=== PATIENT | female | born 1980 | race Caucasian/White ===

== ENCOUNTER 2016-09-23 17:35 | Emergency (ER) | payer MEDICAID, OTHER ==
[~2016-09-23] VITALS: Ht 165.1 cm; Wt 104.5 kg
[~2016-09-23 17:35] MED LIST: ACET325T33 PO; ALBU8.5H3 INH; CIPR500T4 PO; FERR-55 PO; HYDR-3498 PO; HYDR-906 PO; METR500T PO; ONDA4TAB35 PO; TRAM50TA2 PO
[2016-09-23 17:37] VITALS: Ht 165.1 cm; Wt 104.5 kg
[2016-09-23 19:14] LABS: ALBUMIN 3.6 g/dl (3.3-4.9)
[2016-09-23 19:15] LABS: POTASSIUM 4.2 mmol/L (3.5-5.1)
[2016-09-23 19:17] LABS: ALBUMIN/GLOBULIN RATIO 1.05; CREATININE 0.55 mg/dl (0.44-1.00)
[2016-09-23 19:18] LABS: CALCIUM 9.4 mg/dl (8.4-10.2)
--- NOTE | 2016-09-23 19:42 | RADRPT ---
PROCEDURE: Obstetrical ultrasound greater than 14 weeks CLINICAL INDICATION: Vaginal bleeding TECHNIQUE: Real time sonographic imaging of the gravid uterus is performed transabdominally and mu ltiple static bishop scale and Doppler images are submitted for review as are measurements. The image s are reviewed on the PACS. COMPARISON: Pelvic ultrasound 06/27/2016 FINDINGS: There is a single living intrauterine gestation in cephalic to variable presentation. The he art beat is estimated at 136 bpm. The measurements are as follows: BPD:4.12 cm HC:15.20 cm AC:14.59 cm FL:3.12 cm Estimated gestational age is 19 weeks 1 day. The estimated date of delivery is 02/16/2017. The estimated weight is 302 grams. Placenta is anterior and grade 1. There is no evidence of placenta previa or abruption. anatomic survey is performed and shows no abnormality, the three-vessel cord and cord insertio n are unremarkable. The amniotic fluid is normal, the maximum vertical pocket estimated at 7.22 cm. RPTAT:HJJR IMPRESSION: 1. Single viable intrauterine gestation estimated at 90 weeks 1 day, appropriate interval growth com pared to the study of 06/27/2016 with the estimated date of delivery 02/16/2017. 2. Anterior grade 1 placenta without evidence of placenta previa or abruption. Physician Becky Date Time Electronically viewed and signed by Physician Becky on 09/23/2016 19:42 JR/
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
[2016-09-23 20:40] VITALS: BP 122/79; PULSE 86; RESP 16
== END 2016-09-23 20:42 | disposition home or self-care (01) ==
LOC: FTE 17:35
DX: O26.892 Other specified pregnancy related conditions, second trimester (principal); R10.2 Pelvic and perineal pain; O99.52 Diseases of the respiratory system complicating childbirth; Z3A.19 19 weeks gestation of pregnancy
CPT/HCPCS: 76801; 76817; 80053; 84702; 86900; 86901; Z7502

== ENCOUNTER 2016-11-20 09:25 | Outpatient (CLI) | payer MEDICAID ==
[~2016-11-20] VITALS: Ht 160 cm; Wt 108.6 kg
[2016-11-20 09:42] VITALS: BP 142/67; PULSE 94; RESP 19; Ht 160 cm; Wt 108.6 kg
--- NOTE | 2016-11-20 10:23 | RADRPT ---
PROCEDURE: Obstetrical ultrasound CLINICAL INDICATION: LEAKING FLUID/PTL TECHNIQUE: Multiple sonographic images of the pelvis were obtained. The images were reviewed on a PACS workstation. COMPARISON: Obstetrical ultrasound from 09/23/2016 FINDINGS: The cervix is closed with a length of 4.4 cm. There is a single viable intrauterine gestation. Cardiac activity is present with 141 beats per minute. There is a vertex presentation. The placenta is anterior. There is no evidence for an abruption or placenta previa. There is a normal amount of amniotic fluid with an DELFINO = 9.2 cm. Measurements were made in order to determine age. The results are as follows (cm): BPD =7.03 HC =25.91 AC =23.60 FL =4.65 Estimated gestational age by ultrasound of approximately 27 weeks, 3 days. The estimated date of delivery by ultrasound is 02/16/2017. Estimated gestational age by LMP of approximately 27 weeks, 5 days. The estimated date of delivery by LMP is 02/14/2017. EFW = 1030 grams (18th percentile) IMPRESSION: Single viable intrauterine gestation of approximately 27 weeks, 3 days . The estimated date of delivery is 02/16/2017 . Dating by ultrasound is within 2 days of dating by LMP. Normal DELFINO. Cephalic presentation. Estimated weight is in the 18th percentile. The cervix is closed and measures 4.4 cm in length. RPTAT: EE Physician Radha Date Time Electronically viewed and signed by Physician Radha on 11/20/2016 10:22 /
[2016-11-20 10:41] LABS: ADD UMIC YES; URINE BILIRUBIN (Dip) NEGATIVE (NEGATIVE); URINE BLOOD (Dip) TRACE (NEGATIVE); URINE COLOR LT. YELLOW (YELLOW); URINE GLUCOSE (Dip) NEGATIVE (NEGATIVE); URINE KETONES (Dip) NEGATIVE (NEGATIVE); URINE LEUKOCYTE ESTERASE (Dip) 2+ (NEGATIVE); URINE NITRITE (Dip) NEGATIVE (NEGATIVE); URINE TOTAL PROTEIN (Dip) TRACE (NEGATIVE); URINE UROBILINOGEN (Dip) 0.2 E.U./dL (0.1-1.0)
[2016-11-20 10:49] LABS: BACTERIA,URINE FEW; SQUAMOUS EPITHELIAL CELL,UR MANY; URINE RBCS NONE SEEN /HPF (0)
--- NOTE | 2016-11-20 11:43 | PN ---
Date/Time of Note Date/Time of Note DATE: 11/20/16 TIME: 11:31 OB Subjective Subjective Subjective Patient is a 36-year-old 5 para 4 at 27+ weeks of gestation She presents with complaint of positive contractions and positive leaking fluids Patient reports positive movement, no vaginal bleeding Her care has been with Dr. Mims OB Objective Objective Objective UA negative Rupture of membranes negative Cervical length 4.4 cm DELFINO 9.2 cm PROCEDURE: Obstetrical ultrasound CLINICAL INDICATION: LEAKING FLUID/PTL TECHNIQUE: Multiple sonographic images of the pelvis were obtained. The images were reviewed on a PACS workstation. COMPARISON: Obstetrical ultrasound from 09/23/2016 FINDINGS: The cervix is closed with a length of 4.4 cm. There is a single viable intrauterine gestation. Cardiac activity is present with 141 beats per minute. There is a vertex presentation. The placenta is anterior. There is no evidence for an abruption or placenta previa. There is a normal amount of amniotic fluid with an DELFINO = 9.2 cm. Measurements were made in order to determine age. The results are as follows (cm): BPD = 7.03 HC = 25.91 AC = 23.60 FL = 4.65 Estimated gestational age by ultrasound of approximately 27 weeks, 3 days. The estimated date of delivery by ultrasound is 02/16/2017. Estimated gestational age by LMP of approximately 27 weeks, 5 days. The estimated date of delivery by LMP is 02/14/2017. EFW = 1030 grams (18th percentile) IMPRESSION: Single viable intrauterine gestation of approximately 27 weeks, 3 days . The estimated date of delivery is 02/16/2017 . Dating by ultrasound is within 2 days of dating by LMP. Normal DELFINO. Cephalic presentation. Estimated weight is in the 18th percentile. The cervix is closed and measures 4.4 cm in length. RPTAT: EE Physician Radha Date Time Electronically viewed and signed by Darion Florian Physician on 11/20/2016 10:22 RA/ CC: JAJA MIMS M.D. HEENT: WNL Heart: Rhythm Normal Lungs: Clear, Equal Abdomen: WNL Extremities: Normal Reflexes: Normal Cervical Dilatation: None Membranes: Intact Heart Rate: 140's Accelerations: Accelerations Present Decelerations: No Decelerations OB Assessment/Plan Other Assessment: Rule out labor Rule out premature rupture of membranes Other plan: Urinalysis within normal limits Cervical length within normal limits DELFINO within normal limits Patient was counseled regarding all signs and symptoms of labor/rupture of membranes We will discharge patient home She has a follow-up appointment with her [employer] in 2 days JOSÉ MIGUEL ESPANA MD November 20, 2016 11:41
--- NOTE | 2016-11-20 11:51 | TRIAGE ---
OB Triage Datetime Report Generated by CPN: 11/20/2016 11:51 Datetime: 11/20/2016 11:25 Stage of : OB Triage Maternal Assessment Level of Consciousness: Fully Conscious DTR's/Clonus: DTRs 1+ Headache: Denies Breath Sounds, Left: Clear and Equal Breath Sounds, Right: Clear and Equal Nausea/Vomiting: Denies RUQ Epigastric Pain: Denies Labor Evaluation Frequency: NONE Monitor Mode: External Resting Tone [place]: Relaxed Heart Rate FHR Baseline Rate: 135 Monitor Mode: External US Variability: Moderate 6-25 bpm Accelerations: 15X15 Decelerations: None Category: Category I Vaginal Exam Membrane Status: Intact Datetime: 11/20/2016 10:36 Stage of : OB Triage Maternal Assessment Level of Consciousness: Fully Conscious DTR's/Clonus: DTRs 1+ Headache: Denies Breath Sounds, Left: Clear and Equal Breath Sounds, Right: Clear and Equal Nausea/Vomiting: Denies RUQ Epigastric Pain: Denies Labor Evaluation Frequency: NONE Monitor Mode: External Resting Tone [place]: Relaxed Heart Rate FHR Baseline Rate: 135 Monitor Mode: External US Variability: Moderate 6-25 bpm Accelerations: 15X15 Decelerations: None Category: Category I Vaginal Exam Membrane Status: Intact Datetime: 11/20/2016 10:00 EGA: 27.5 Datetime: 11/20/2016 09:46 Maternal Assessment Level of Consciousness: Fully Conscious DTR's/Clonus: DTRs 1+ Headache: Denies Blurred Vision: No Respiratory Effort: Unlabored Breath Sounds, Left: Clear and Equal Breath Sounds, Right: Clear and Equal Nausea/Vomiting: Denies RUQ Epigastric Pain: Denies Facial Edema: None Labor Evaluation Frequency: NONE Monitor Mode: External Resting Tone [place]: Relaxed Heart Rate FHR Baseline Rate: 140 Monitor Mode: External US Variability: Moderate 6-25 bpm Accelerations: 15X15 Decelerations: None Category: Category I Vaginal Exam Membrane Status: Intact Datetime: 11/20/2016 09:40 Stage of : OB Triage Datetime: 11/20/2016 09:30 Assessment Type: Triage Maternal Assessment Level of Consciousness: Fully Conscious DTR's/Clonus: DTRs 2+; No Clonus Headache: Denies Blurred Vision: No Respiratory Effort: Unlabored; Regular Rhythm; Equal Expansion Breath Sounds, Left: Clear and Equal Breath Sounds, Right: Clear and Equal Nausea/Vomiting: Denies RUQ Epigastric Pain: Denies Lower Extremities Edema: None Degree: None Upper Extremities Edema: None Degree: None Facial Edema: None Fall Risk Assessment History of Falling: (0) No Secondary Diagnosis: (0) No Ambulatory Aid: (0) Bedrest/Nurse Assist IV Therapy: (0) No Gait: (0) Normal/Bedrest/Immobile Mental Status: (0) Oriented to Own Ability Fall Score: 0 Fall Risk Score Definition: No Risk: No action required Datetime: 11/20/2016 09:29 Stage of : OB Triage Datetime: 11/20/2016 09:21 Time of Arrival: 11/20/2016 09:21 Arrived By: Ambulatory Arrived From: Home Chief Complaint: PT CAME IN C/O UC'S 6 A DAY AND LEAKING FLUID SINCE 1 WEEK AGO. DENIES ANY OTHER PROBLEM AT THSI TIME Movement: Present Contractions: Irregular Contractions: 6 A DAY Rupture of Membranes: Denies Vaginal Discharge: Denies Recent Sexual Intercouse: Denies Abdominal Trauma: Not Applicable Time Provider Notified: 11/20/2016 09:40 Provider Notified: DINO Initial Plan: BPP, CX LENGHT, EFW, ROM PLUS UA
== END 2016-11-20 11:35 | disposition home or self-care (01) ==
LOC: OBT 09:25 → L-D 09:27 → OBT 11:35
PROVIDERS: ATTEND Obstetrics & Gynecology
DX: O62.4 Hypertonic, incoordinate, and prolonged uterine contractions (principal); Z3A.27 27 weeks gestation of pregnancy
CPT/HCPCS: 76815; 76817; 81001; 84112; Z7500; 81003; G0463

== ENCOUNTER 2016-12-07 16:39 | Outpatient (CLI) | payer MEDICAID ==
[~2016-12-07] VITALS: Ht 162.6 cm; Wt 109.0 kg
[~2016-12-07 16:39] MED LIST changes: -ACET325T33 PO; -CIPR500T4 PO; -FERR-55 PO; -HYDR-3498 PO; -HYDR-906 PO; -METR500T PO; -ONDA4TAB35 PO; -TRAM50TA2 PO
[2016-12-07 17:15] VITALS: BP 130/63; PULSE 84; RESP 16; Ht 162.6 cm; Wt 109.0 kg
[2016-12-07 18:09] LABS: ADD UMIC YES; URINE BILIRUBIN (Dip) NEGATIVE (NEGATIVE); URINE BLOOD (Dip) TRACE (NEGATIVE); URINE COLOR LT. YELLOW (YELLOW); URINE GLUCOSE (Dip) NEGATIVE (NEGATIVE); URINE KETONES (Dip) NEGATIVE (NEGATIVE); URINE LEUKOCYTE ESTERASE (Dip) 1+ (NEGATIVE); URINE NITRITE (Dip) NEGATIVE (NEGATIVE); URINE TOTAL PROTEIN (Dip) NEGATIVE (NEGATIVE); URINE UROBILINOGEN (Dip) 0.2 E.U./dL (0.1-1.0)
[2016-12-07 18:15] LABS: ADD SCAN DIFF NO
[2016-12-07 18:17] LABS: BASOPHIL # 0.1 10^3/ul (0.0-0.1); BASOPHILS % 0.4 % (0.0-2.0); EOSINOPHILS # 0.2 10^3/ul (0.0-0.5); EOSINOPHILS % 1.6 % (0.0-7.0); HEMATOCRIT 34.8 % (37.0-47.0); HEMOGLOBIN 11.9 g/dl (12.0-16.0); LYMPHOCYTES # 3.2 10^3/ul (0.8-2.9); LYMPHOCYTES % 26.4 % (15.0-51.0); MEAN CORPUSCULAR HEMOGLOBIN 28.1 pg (29.0-33.0); MEAN CORPUSCULAR HGB CONC 34.2 g/dl (32.0-37.0); MEAN CORPUSCULAR VOLUME 82.3 fl (82.0-101.0); MEAN PLATELET VOLUME 10.4 fl (7.4-10.4); MONOCYTE # 0.6 10^3/ul (0.3-0.9); MONOCYTES % 4.6 % (0.0-11.0); NEUTROPHILS % 66.6 % (39.0-77.0); PLATELET COUNT 296 10^3/UL (140-415); RED BLOOD COUNT 4.23 10^6/ul (4.20-5.40); RED CELL DISTRIBUTION WIDTH 13.6 % (11.5-14.5); WHITE BLOOD COUNT 12.1 10^3/ul (4.8-10.8)
[2016-12-07 18:20] LABS: BACTERIA,URINE RARE; SQUAMOUS EPITHELIAL CELL,UR MANY; URINE RBCS 0-2 /HPF (0)
--- NOTE | 2016-12-07 18:33 | RADRPT ---
PROCEDURE: Biophysical profile CLINICAL INDICATION: distress TECHNIQUE: Color and bishop-scale ultrasound images of an intrauterine gestation were obtained. COMPARISON: None FINDINGS: A single live intrauterine gestation is identified in cephalic position with an estimated hear t rate of 128 beats per minute. The placenta is located anteriorly and has a grade of II. The cerv ix appears closed and measures approximately 4.1 cm in length.. No evidence of previa or abruption identified. DELFINO is 10.8 cm. movement 2/2. tone 2/2. breathing movement 2/2. Qualitative AFV 2/2 Total biophysical profile 02/06 IMPRESSION: 02/06 biophysical profile. Closed cervix measuring 4.1 cm in length. RPTAT: AA .Armen Goldberg MD, MD Date Time Electronically viewed and signed by .Armen Goldberg MD, MD on 12/07/2016 18:33 .P/
[2016-12-07 18:37] LABS: INR 0.91; PROTIME 12.2 Sec (12.2-14.2)
[2016-12-07 18:38] LABS: PARTIAL THROMBOPLASTIN TIME 26.8 Sec (25.0-35.0)
[2016-12-07 18:41] LABS: ALBUMIN/GLOBULIN RATIO 1.53; BILIRUBIN,INDIRECT 0.1 mg/dl (0-1.1); BILIRUBIN,TOTAL 0.1 mg/dl (0.2-1.3); CALCIUM 9.1 mg/dl (8.4-10.2); CREATININE 0.58 mg/dl (0.44-1.00); POTASSIUM 3.9 mmol/L (3.5-5.1); TOTAL PROTEIN 6.6 g/dl (6.1-8.1); URIC ACID 3.5 mg/dl (3.1-7.9)
--- NOTE | 2016-12-07 19:33 | CONS ---
Date/Time of Note Date/Time of Note DATE: 12/07/16 TIME: 19:23 Consultation Date/Type/Reason Admit Date/Time December 07, 2016 OB triage consult Reason for Consultation This patient is a 36 years old 6 para 3 1 living 4 with a due date of 02/14/2017 which makes her 30 weeks and 1 day today. She came to triage area complaining of abdominal pain shortness of breath low movement also complaining of leg swelling in the past week as well as her hands She has a history of asthma on inhaler plus albuterol On examination she appeared to be a normal patient in no acute distress her general vital signs were within normal limits; blood pressure 130/63 pulse rate 84 respiration 17/min temperature 98.1 and O2 saturation of 95% at room temperature She had very rare contraction heart tone was normal with fairly good variability Not much of a edema of the lower or upper extremities Laboratory Tests Test 12/07/16 18:00 12/07/16 18:04 Urine Color LT. YELLOW Urine Clarity CLEAR Urine pH 7.0 Urine Specific [place] 1.015 Urine Ketones NEGATIVE Urine Nitrite NEGATIVE Urine Bilirubin NEGATIVE Urine Urobilinogen 0.2 E.U./dL Urine Leukocyte Esterase 1+ Urine Microscopic RBC 0-2/HPF Urine Microscopic WBC 0-2/HPF Urine Squamous Epithelial Cells MANY Urine Bacteria RARE Urine Hemoglobin TRACE Urine Glucose NEGATIVE% Urine Total Protein NEGATIVE White Blood Count 12.110^3/ul Red Blood Count 4.2310^6/ul Hemoglobin 11.9g/dl Hematocrit 34.8% Mean Corpuscular Volume 82.3fl Mean Corpuscular Hemoglobin 28.1pg Mean Corpuscular Hemoglobin Concent 34.2g/dl Red Cell Distribution Width 13.6% Platelet Count 62053^3/UL Mean Platelet Volume 10.4fl Neutrophils % 66.6% Lymphocytes % 26.4% Monocytes % 4.6% Eosinophils % 1.6% Basophils % 0.4% Nucleated Red Blood Cells % 0.0/100WBC Neutrophils # 8.010^3/ul Lymphocytes # 3.210^3/ul Monocytes # 0.610^3/ul Eosinophils # 0.210^3/ul Basophils # 0.110^3/ul Nucleated Red Blood Cells # 0.010^3/ul Prothrombin Time 12.2Sec Prothrombin Time Ratio 1.0 INR International Normalized Ratio 0.91 Activated Partial Thromboplast Time 26.8Sec Fibrinogen 517.0mg/dl Sodium Level 136mmol/L Potassium Level 3.9mmol/L Chloride Level 108mmol/L Carbon Dioxide Level 22mmol/L Anion Gap 10 Blood Urea Nitrogen 6mg/dl Creatinine 0.58mg/dl Glucose Level 83mg/dl Uric Acid 3.5mg/dl Calcium Level 9.1mg/dl Total Bilirubin 0.1mg/dl Direct Bilirubin 0.00mg/dl Indirect Bilirubin 0.1mg/dl Aspartate Amino Transf (AST/SGOT) 15IU/L Alanine Aminotransferase (ALT/SGPT) 28IU/L Alkaline Phosphatase 69IU/L Total Protein 6.6g/dl Albumin 4.0g/dl Globulin 2.60g/dl Albumin/Globulin Ratio 1.53 Constitutional: No chills, No diaphoresis, No disoriented, No febrile, No improved, No no complaints, No other, No poor po, No requiring IVF, No requiring O2 Eyes: No discharge, No no complaints, No other, No pain, No redness, No visual change ENT: No bleeding, No congestion, No discharge, No dysphagia, No no complaints, No other, No pain, No sore throat Respiratory: No cough, No no complaints, No other, No pain, No pleuritic pain, No shortness of breath, No sputum, No wheezing Cardiovascular: No chest pain, No edema, No lightheadedness, No no complaints, No orthopenea, No other, No palpitations, No paroxysmal nocturnal dyspnea Gastrointestinal: No blood, No constipation, No decreased appetite, No diarrhea , No flatus, No nausea, No no complaints, No other, No pain, No passing stool, No vomiting Genitourinary: other (Due to lack of significant contractions pelvic exam was not done), No bleeding, No discharge, No dysuria, No flank pain, No hematuria, No no complaints Musculoskeletal: No back pain, No bone/joint pain, No neck pain, No no complaints, No other, No restricted range of motion, No swelling Skin: No bruising, No erythema, No laceration, No no complaints, No other, No pruritis, No rash, No skin lesions Neurologic: other (Knee-jerk reflex were normal), No confusion, No dizziness, No focal-weakness, No headache, No no complaints , No seizure, No syncope Endocrine: No dry skin, No no complaints, No other, No polydypsia, No polyuria , No temp intolerance Additional Comments Lab studies were performed to rule out any possible -induced hypertension. Her CBC were basically normal except for slight anemia : hemoglobin 11.9 hematocrit of 34.3, platelet was 296,000 ,urine tests were basically normal no protein no blood On ultrasound study the report was single live intrauterine gestation in cephalic presentation heartbeat of 128 placenta was anterior grade 2. cervix was closed cervical length was 4.1 cm no evidence of previa or abruption biophysical profile was reported 02/06 With these normal finding patient was reassured and was discharged home to be seen in the clinic and to return in triage in case of active labor, bleeding or any other related problems. Social History Smoking Status: Never smoker Exam/Review of Systems Vital Signs Vitals Vital Signs Date Time Temp Pulse Resp B/P Pulse Ox O2 Delivery O2 Flow Rate FiO2 12/07/16 17:15 98.1 84 16 130/63 Results Result Diagram: 12/07/16 1804 12/07/16 1804 Results 24 hrs Laboratory Tests Test 12/07/16 18:00 12/07/16 18:04 Urine Color LT. YELLOW Urine Clarity CLEAR Urine pH 7.0 Urine Specific [place] 1.015 Urine Ketones NEGATIVE Urine Nitrite NEGATIVE Urine Bilirubin NEGATIVE Urine Urobilinogen 0.2 E.U./dL Urine Leukocyte Esterase 1+ H Urine Microscopic RBC 0-2 Urine Microscopic WBC 0-2 Urine Squamous Epithelial Cells MANY Urine Bacteria RARE Urine Hemoglobin TRACE Urine Glucose NEGATIVE Urine Total Protein NEGATIVE White Blood Count 12.1 H Red Blood Count 4.23 Hemoglobin 11.9 L Hematocrit 34.8 L Mean Corpuscular Volume 82.3 Mean Corpuscular Hemoglobin 28.1 L Mean Corpuscular Hemoglobin Concent 34.2 Red Cell Distribution Width 13.6 Platelet Count 296 Mean Platelet Volume 10.4 # Neutrophils % 66.6 Lymphocytes % 26.4 Monocytes % 4.6 Eosinophils % 1.6 Basophils % 0.4 Nucleated Red Blood Cells % 0.0 Neutrophils # 8.0 H Lymphocytes # 3.2 H Monocytes # 0.6 Eosinophils # 0.2 Basophils # 0.1 Nucleated Red Blood Cells # 0.0 Prothrombin Time 12.2 Prothrombin Time Ratio 1.0 INR International Normalized Ratio 0.91 Activated Partial Thromboplast Time 26.8 Fibrinogen 517.0 H Sodium Level 136 Potassium Level 3.9 Chloride Level 108 Carbon Dioxide Level 22 Anion Gap 10 Blood Urea Nitrogen 6 L Creatinine 0.58 Glucose Level 83 Uric Acid 3.5 Calcium Level 9.1 Total Bilirubin 0.1 L Direct Bilirubin 0.00 Indirect Bilirubin 0.1 Aspartate Amino Transf (AST/SGOT) 15 Alanine Aminotransferase (ALT/SGPT) 28 Alkaline Phosphatase 69 Total Protein 6.6 Albumin 4.0 Globulin 2.60 Albumin/Globulin Ratio 1.53 KAYLEN ZAPATA MD Dec 07, 2016 19:33
--- NOTE | 2016-12-07 19:53 | TRIAGE ---
OB Triage Datetime Report Generated by CPN: 12/07/2016 19:53 Datetime: 12/07/2016 19:41 Stage of : OB Triage Labor Evaluation Frequency: 0 Monitor Mode: External Pattern: Normal: <= 5 Contractions in 10 Minutes Resting Tone [place]: Relaxed Heart Rate FHR Baseline Rate: 135 Monitor Mode: External US Variability: Moderate 6-25 bpm Accelerations: 15X15 Decelerations: None Category: Category I Datetime: 12/07/2016 19:01 Pattern: Normal: <= 5 Contractions in 10 Minutes Resting Tone [place]: Relaxed Contraction Comments: NO UC Heart Rate FHR Baseline Rate: 135 Monitor Mode: External US Variability: Moderate 6-25 bpm Accelerations: 15X15 Decelerations: None Category: Category I Pain Assessment Pain Scale: 5 Pain Presence: Constant Pain Location: Abdomen Pain Goal: 3 Datetime: 12/07/2016 18:00 Labor Evaluation Frequency: X3 Monitor Mode: External Duration (sec)2399: 30-40 Quality: Mild Pattern: Normal: <= 5 Contractions in 10 Minutes Resting Tone [place]: Relaxed Heart Rate FHR Baseline Rate: 135 Monitor Mode: External US Variability: Moderate 6-25 bpm Accelerations: 15X15 Decelerations: None Category: Category I Pain Assessment Pain Scale: 5 Pain Presence: Constant Pain Location: Abdomen Pain Goal: 3 Datetime: 12/07/2016 17:13 Assessment Type: Triage Maternal Assessment Level of Consciousness: Fully Conscious DTR's/Clonus: DTRs 2+; No Clonus Headache: Denies Blurred Vision: No Respiratory Effort: Unlabored; Regular Rhythm; Equal Expansion Breath Sounds, Left: Clear and Equal Breath Sounds, Right: Clear and Equal Nausea/Vomiting: Denies RUQ Epigastric Pain: Denies Lower Extremities Edema: Bilateral Lower Extremities Degree: Pitting Upper Extremities Edema: None Degree: None Facial Edema: None Fall Risk Assessment History of Falling: (0) No Secondary Diagnosis: (0) No Ambulatory Aid: (0) Bedrest/Nurse Assist IV Therapy: (0) No Gait: (0) Normal/Bedrest/Immobile Mental Status: (0) Oriented to Own Ability Fall Score: 0 Fall Risk Score Definition: No Risk: No action required Datetime: 12/07/2016 17:09 Time of Arrival: 12/07/2016 16:37 EGA: 30.1 Arrived By: Ambulatory Arrived From: Home Chief Complaint: Pt. came to hospital c/o cont. abdominal pain since 1200 noon, pain level 5/10, a lso c/o SOB, decreased fm today, legs and hands swelling since past week, deny headache, deny dizzin ess, deny visual disturbance Movement: Decreased Contractions: Denies/Absent Rupture of Membranes: Denies Vaginal Discharge: Denies Recent Sexual Intercouse: Denies Abdominal Trauma: Not Applicable Patient Complaints: Other Time Provider Notified: 12/07/2016 17:21 Provider Notified: JODI Initial Plan: [facility], BPP, CL Datetime: 11/20/2016 10:00 EGA: 27.5 Datetime: 11/20/2016 09:30 Fall Score: 0 Fall Risk Score Definition: No Risk: No action required
== END 2016-12-07 19:54 | disposition home or self-care (01) ==
LOC: OBT 16:39 → L-D 16:39 → OBT 19:54
PROVIDERS: ATTEND Obstetrics & Gynecology
DX: O26.893 Other specified pregnancy related conditions, third trimester (principal); R10.9 Unspecified abdominal pain; R06.02 Shortness of breath; M79.89 Other specified soft tissue disorders; Z3A.30 30 weeks gestation of pregnancy
CPT/HCPCS: 76817; 76818; 80053; 81001; 84560; 85025; 85384; 85610; 85730; Z7500; G0463

== ENCOUNTER 2016-12-09 10:36 | Outpatient (CLI) | payer MEDICAID ==
[~2016-12-09] VITALS: Ht 162.6 cm; Wt 109.5 kg
[2016-12-09 11:20] VITALS: BP 126/89; PULSE 87; RESP 19
[2016-12-09 12:22] LABS: ADD SCAN DIFF NO
--- NOTE | 2016-12-09 12:26 | RADRPT ---
PROCEDURE: US OB biophysical profile. CLINICAL INDICATION: evaluation TECHNIQUE: Multiple sonographic images of the pelvis were obtained. The images were reviewed on a PACS workstation. COMPARISON: Obstetrical ultrasound from 12/07/2016 FINDINGS: There is a single viable intrauterine gestation. Cardiac activity is present with 146 beats per min [place]. There is a vertex presentation. The placenta is anterior. There is no evidence of placental abruption. There is a normal amount of amniotic fluid with an DELFINO = 10.9 cm. Biophysical profile: movement 2/2 tone 2/2. breathing 2/2 DELFINO 2/2 Total 02/06 RPTAT: AA . IMPRESSION: Normal biophysical profile. Physician Radha Date Time Electronically viewed and signed by Physician Radha on 12/09/2016 12:26 /
[2016-12-09 12:28] LABS: BASOPHILS % 0.3 % (0.0-2.0); EOSINOPHILS # 0.2 10^3/ul (0.0-0.5); EOSINOPHILS % 1.8 % (0.0-7.0); HEMATOCRIT 35.7 % (37.0-47.0); HEMOGLOBIN 11.9 g/dl (12.0-16.0); LYMPHOCYTES # 2.6 10^3/ul (0.8-2.9); LYMPHOCYTES % 24.6 % (15.0-51.0); MEAN CORPUSCULAR HEMOGLOBIN 27.5 pg (29.0-33.0); MEAN CORPUSCULAR HGB CONC 33.3 g/dl (32.0-37.0); MEAN CORPUSCULAR VOLUME 82.4 fl (82.0-101.0); MEAN PLATELET VOLUME 10.7 fl (7.4-10.4); MONOCYTE # 0.7 10^3/ul (0.3-0.9); MONOCYTES % 6.4 % (0.0-11.0); NEUTROPHILS % 66.3 % (39.0-77.0); PLATELET COUNT 307 10^3/UL (140-415); RED BLOOD COUNT 4.33 10^6/ul (4.20-5.40); RED CELL DISTRIBUTION WIDTH 13.4 % (11.5-14.5); WHITE BLOOD COUNT 10.5 10^3/ul (4.8-10.8)
--- NOTE | 2016-12-09 12:31 | RADRPT ---
PROCEDURE: US OB AND ULTRASOUND CERVIX. CLINICAL INDICATION: Size and dates , bleeding TECHNIQUE: Multiple sonographic images of the pelvis and gravid uterus were obtained. The images were reviewed on a PACS workstation. Transvaginal images of the cervix were also obtained. COMPARISON: 12/07/2016 FINDINGS: The cervix has a length of 3.9 cm. There is a single viable intrauterine gestation. Cardiac activity is present with 144 beats per min [place]. There is a vertex presentation. The placenta is anterior. There is no evidence for an abruption or placenta previa. There is a normal amount of amniotic fluid with an DELFINO = 10.9 cm. Measurements were made in order to determine age. The results are as follows: BPD =7.8 cm HC =27.4 cm AC =26.6 cm FL =5.9 cm Estimated gestational age of approximately 30 weeks and 5 days based on ultrasound measurements. Clinical age: 30 weeks and 3 days. The estimated date of delivery is 02/12/2017, based on ultrasound measurements. The EFW = 1618 g, 45.7%, based on LMP age. RPTAT: AA IMPRESSION: Single viable intrauterine gestation of approximately 30 weeks and 5 days based on ultrasound measu rements. .Jeovanny Alcantar MD, Date Time Electronically viewed and signed by .Jeovanny Alcantar MD, MD on 12/09/2016 12:30 .S/
[2016-12-09 13:10] LABS: ADD UMIC YES; URINE BILIRUBIN (Dip) NEGATIVE (NEGATIVE); URINE BLOOD (Dip) 3+ (NEGATIVE); URINE COLOR LT. YELLOW (YELLOW); URINE GLUCOSE (Dip) NEGATIVE (NEGATIVE); URINE KETONES (Dip) NEGATIVE (NEGATIVE); URINE LEUKOCYTE ESTERASE (Dip) 1+ (NEGATIVE); URINE NITRITE (Dip) NEGATIVE (NEGATIVE); URINE TOTAL PROTEIN (Dip) NEGATIVE (NEGATIVE); URINE UROBILINOGEN (Dip) 0.2 E.U./dL (0.1-1.0)
[2016-12-09 13:56] LABS: BACTERIA,URINE FEW; SQUAMOUS EPITHELIAL CELL,UR FEW
--- NOTE | 2016-12-09 14:11 | PN ---
Triage Information Date/Time Weeks of Gestation Patient is 6 para 4 at 30+3 weeks of gestation who presents with vaginal bleeding She has no contractions, no leaking fluid, positive movement : 6 Para: 4 Diabetes: none Hypertention: none Objective Vital Signs Date Time Temp Pulse Resp B/P Pulse Ox O2 Delivery O2 Flow Rate FiO2 12/09/16 11:20 98.1 87 19 126/89 97 Room Air Exam FHR 140s reactive [place] none Results/Medications Result Diagram: 12/09/16 1155 Results 24 hrs Laboratory Tests Test 12/09/16 10:35 12/09/16 11:55 Urine Color LT. YELLOW Urine Clarity CLEAR Urine pH 6.5 Urine Specific [place] 1.010 Urine Ketones NEGATIVE Urine Nitrite NEGATIVE Urine Bilirubin NEGATIVE Urine Urobilinogen 0.2 E.U./dL Urine Leukocyte Esterase 1+ H Urine Microscopic RBC 5-10 Urine Microscopic WBC 2-5 Urine Squamous Epithelial Cells FEW Urine Bacteria FEW Urine Hemoglobin 3+ H Urine Glucose NEGATIVE Urine Total Protein NEGATIVE White Blood Count 10.5 Red Blood Count 4.33 Hemoglobin 11.9 L Hematocrit 35.7 L Mean Corpuscular Volume 82.4 Mean Corpuscular Hemoglobin 27.5 L Mean Corpuscular Hemoglobin Concent 33.3 Red Cell Distribution Width 13.4 Platelet Count 307 Mean Platelet Volume 10.7 H Neutrophils % 66.3 Lymphocytes % 24.6 Monocytes % 6.4 Eosinophils % 1.8 Basophils % 0.3 Nucleated Red Blood Cells % 0.0 Neutrophils # 7.0 Lymphocytes # 2.6 Monocytes # 0.7 Eosinophils # 0.2 Basophils # 0.0 Nucleated Red Blood Cells # 0.0 Imaging Results PROCEDURE: US OB biophysical profile. CLINICAL INDICATION: evaluation TECHNIQUE: Multiple sonographic images of the pelvis were obtained. The images were reviewed on a PACS workstation. COMPARISON: Obstetrical ultrasound from 12/07/2016 FINDINGS: There is a single viable intrauterine gestation. Cardiac activity is present with 146 beats per minute. There is a vertex presentation. The placenta is anterior. There is no evidence of placental abruption. There is a normal amount of amniotic fluid with an DELFINO = 10.9 cm. Biophysical profile: movement 2/2 tone 2/2. breathing 2/2 DELFINO 2/2 Total 02/06 RPTAT: AA . IMPRESSION: Normal biophysical profile. Physician Radha Date Time Electronically viewed and signed by Darion Florian Physician on 12/09/2016 12:26 RA/ CC: JAJA JOHNSON M.D. PROCEDURE: US OB AND ULTRASOUND CERVIX. CLINICAL INDICATION: Size and dates , bleeding TECHNIQUE: Multiple sonographic images of the pelvis and gravid uterus were obtained. The images were reviewed on a PACS workstation. Transvaginal images of the cervix were also obtained. COMPARISON: 12/07/2016 FINDINGS: The cervix has a length of 3.9 cm. There is a single viable intrauterine gestation. Cardiac activity is present with 144 beats per minute. There is a vertex presentation. The placenta is anterior. There is no evidence for an abruption or placenta previa. There is a normal amount of amniotic fluid with an DELFINO = 10.9 cm. Measurements were made in order to determine age. The results are as follows: BPD = 7.8 cm HC = 27.4 cm AC = 26.6 cm FL = 5.9 cm Estimated gestational age of approximately 30 weeks and 5 days based on ultrasound measurements. Clinical age: 30 weeks and 3 days. The estimated date of delivery is 02/12/2017, based on ultrasound measurements. The EFW = 1618 g, 45.7%, based on LMP age. RPTAT: AA IMPRESSION: Single viable intrauterine gestation of approximately 30 weeks and 5 days based on ultrasound measurements. .Jeovanny Alcantar MD, MD Date Time Electronically viewed and signed by .Jeovanny Alcantar MD, MD on 12/09/2016 12: 30 .S/ CC: JAJA JOHNSON M.D. Assessment/Plan Patient is 6 para 4 at 30+3 weeks of gestation who presents with vaginal bleeding Prescription for Macrobid was given Patient instructed to follow-up with her OB in 2-3 days JOSÉ MIGUEL ESPANA MD Dec 09, 2016 14:07
--- NOTE | 2016-12-09 18:32 | TRIAGE ---
OB Triage Datetime Report Generated by CPN: 12/09/2016 18:32 Datetime: 12/09/2016 18:05 Labor Evaluation Frequency: 0 Monitor Mode: External Pattern: Normal: <= 5 Contractions in 10 Minutes Resting Tone [place]: Relaxed Heart Rate FHR Baseline Rate: 140 Monitor Mode: External US FHR Baseline Changes: No Baseline Change Variability: Moderate 6-25 bpm Accelerations: 15X15 Decelerations: None Datetime: 12/09/2016 17:00 Labor Evaluation Frequency: 0 Monitor Mode: External Pattern: Normal: <= 5 Contractions in 10 Minutes Resting Tone [place]: Relaxed Heart Rate FHR Baseline Rate: 155 FHR Baseline Changes: No Baseline Change Variability: Moderate 6-25 bpm Accelerations: 15X15 Decelerations: Variable Datetime: 12/09/2016 16:00 Labor Evaluation Frequency: 0 Monitor Mode: External Pattern: Normal: <= 5 Contractions in 10 Minutes Resting Tone [place]: Relaxed Heart Rate FHR Baseline Rate: 125 Monitor Mode: External US FHR Baseline Changes: No Baseline Change Variability: Moderate 6-25 bpm Accelerations: 15X15 Decelerations: Variable Comments: OCC VARIABLES Datetime: 12/09/2016 15:00 Labor Evaluation Frequency: 0 Monitor Mode: External Pattern: Normal: <= 5 Contractions in 10 Minutes Resting Tone [place]: Relaxed Heart Rate FHR Baseline Rate: 125 Monitor Mode: External US FHR Baseline Changes: No Baseline Change Variability: Moderate 6-25 bpm Accelerations: 15X15 Datetime: 12/09/2016 14:00 Labor Evaluation Frequency: 0 Monitor Mode: External Pattern: Normal: <= 5 Contractions in 10 Minutes Resting Tone [place]: Relaxed Heart Rate FHR Baseline Rate: 135 FHR Baseline Changes: No Baseline Change Variability: Moderate 6-25 bpm Accelerations: 15X15 Decelerations: None Datetime: 12/09/2016 13:00 Labor Evaluation Frequency: 0 Monitor Mode: External Pattern: Normal: <= 5 Contractions in 10 Minutes Resting Tone [place]: Relaxed Heart Rate FHR Baseline Rate: 140 FHR Baseline Changes: No Baseline Change Variability: Moderate 6-25 bpm Accelerations: 15X15 Decelerations: Variable Datetime: 12/09/2016 12:00 Labor Evaluation Frequency: x3 Monitor Mode: External Duration (sec)2399: 40-50 Quality: Mild Pattern: Normal: <= 5 Contractions in 10 Minutes Resting Tone [place]: Relaxed Heart Rate FHR Baseline Rate: 145 Monitor Mode: External US FHR Baseline Changes: No Baseline Change Variability: Moderate 6-25 bpm Accelerations: 15X15 Decelerations: Variable Comments: Vx2, WITH CONTRACTIONS Datetime: 12/09/2016 11:14 Time of Arrival: 12/09/2016 10:32 EGA: 30.3 Arrived By: Ambulatory Arrived From: Home Chief Complaint: BLEEDING FROM 0800- STARTED [place], [place], BUT IW NOW A DARK RED Movement: Present Contractions: Denies/Absent Rupture of Membranes: Denies Vaginal Bleeding: Small Vaginal Discharge: Denies Recent Sexual Intercouse: Denies Abdominal Trauma: Not Applicable Patient Complaints: Other Additional Patient Complaints: PT REPORTS FEELING LIKE SHE EITHER NEEDS TO URINATE OR HAVE A BM EV CYDNEY 8 MINUTES, BUT WHEN SHE USED THE RESTROOM, CANNOT DO EITHER. Time Provider Notified: 12/09/2016 12:00 Provider Notified: DR. JOHNSON Initial Plan: EFM x2, BPP, EFW, PLACENTA, CERVICAL LENGTH, FFN, CBC, TYPE _ SCREEN, U/A Datetime: 12/09/2016 11:07 Stage of : OB Triage Assessment Type: Triage Maternal Assessment Level of Consciousness: Fully Conscious Headache: Denies Blurred Vision: No Respiratory Effort: Unlabored; Regular Rhythm; Equal Expansion Breath Sounds, Left: Clear and Equal Breath Sounds, Right: Clear and Equal Nausea/Vomiting: Denies RUQ Epigastric Pain: Denies Lower Extremities Edema: None Degree: None Upper Extremities Edema: None Degree: None Facial Edema: None Temperature Route: Oral Fall Risk Assessment History of Falling: (0) No Secondary Diagnosis: (0) No Ambulatory Aid: (0) Bedrest/Nurse Assist IV Therapy: (0) No Gait: (0) Normal/Bedrest/Immobile Mental Status: (0) Oriented to Own Ability Fall Score: 0 Fall Risk Score Definition: No Risk: No action required Pain Assessment Pain Scale: 0 Pain Presence: None/Denies Pain Type: N/A Datetime: 12/07/2016 17:13 Fall Score: 0 Fall Risk Score Definition: No Risk: No action required Datetime: 12/07/2016 17:09 EGA: 30.1 Datetime: 11/20/2016 10:00 EGA: 27.5 Datetime: 11/20/2016 09:30 Fall Score: 0 Fall Risk Score Definition: No Risk: No action required
== END 2016-12-09 18:27 | disposition home or self-care (01) ==
LOC: OBT 10:36 → L-D 10:36 → OBT 18:27
PROVIDERS: ATTEND Obstetrics & Gynecology
DX: O46.93 Antepartum hemorrhage, unspecified, third trimester (principal); Z3A.30 30 weeks gestation of pregnancy
CPT/HCPCS: 36415; 76815; 76817; 76818; 81001; 85025; 86850; 86900; 86901; 87086; Z7500; G0463

== ENCOUNTER 2016-12-30 18:41 | Outpatient (CLI) | payer MEDICAID ==
[~2016-12-30] VITALS: Ht 162.6 cm; Wt 111.3 kg
[2016-12-30 19:13] VITALS: Ht 162.6 cm; Wt 111.3 kg
[2016-12-30 19:14] VITALS: BP 130/62; PULSE 81; RESP 18
[2016-12-30] MEDS ORDERED: LACTATED RINGER'S 1,000 ML IV SCH (19:30)
--- NOTE | 2016-12-30 20:29 | RADRPT ---
PROCEDURE: US OB biophysical profile. CLINICAL INDICATION: Contractions TECHNIQUE: Multiple sonographic images of the pelvis were obtained. The images were reviewed on a PACS workstation. COMPARISON: Obstetrical ultrasound from 12/09/2016 FINDINGS: There is a single viable intrauterine gestation. Cardiac activity is present with 132 beats per min [place]. There is a vertex presentation. The placenta is anterior and left lateral in location. There is no evidence of placental abruption . There is a normal amount of amniotic fluid with an DELFINO = 11.3 cm. Biophysical profile: movement 2/2 tone 2/2. breathing 2/2 DELFINO 2/2 Total 02/06 RPTAT: AA . IMPRESSION: Normal biophysical profile. Cephalic presentation. Normal DELFINO. Physician Radha Date Time Electronically viewed and signed by Physician Radha on 12/30/2016 20:28 /
--- NOTE | 2016-12-30 20:30 | RADRPT ---
PROCEDURE: Obstetrical ultrasound CLINICAL INDICATION: CONTRACTIONS TECHNIQUE: Multiple sonographic images of the pelvis were obtained. The images were reviewed on a PACS workstation. COMPARISON: Obstetrical ultrasound from 12/09/2016 FINDINGS: The cervix is not well visualized. There is a single viable intrauterine gestation. Cardiac activity is present with 126 beats per minute. There is a vertex presentation. The placenta is anterior left lateral in location. There is no evidence for an abruption or placenta previa. There is a normal amount of amniotic fluid with an DELFINO = 11.3 cm. Measurements were made in order to determine age. The results are as follows (cm): BPD =8.72 HC =30.67 AC =32.21 FL =6.31 Estimated gestational age by ultrasound of approximately 34 weeks, 4 days. The estimated date of delivery by ultrasound is 02/06/2017. Estimated gestational age by LMP of approximately 33 weeks, 3 days. The estimated date of delivery by LMP is 02/14/2017. EFW = 2548 grams (84th percentile) IMPRESSION: Single viable intrauterine gestation of approximately 34 weeks, 4 days . The estimated date of delivery is 02/06/2017. Dating by ultrasound is within 8 days of dating by LMP. Cephalic presentation. Normal DELFINO. Estimated weight is in the 84th percentile. RPTAT: EE Physician Radha Date Time Electronically viewed and signed by Physician Radha on 12/30/2016 20:30 /
[2016-12-30 21:11] LABS: BASOPHILS % 0.3 % (0.0-2.0); EOSINOPHILS # 0.3 10^3/ul (0.0-0.5); EOSINOPHILS % 2.3 % (0.0-7.0); HEMATOCRIT 34.1 % (37.0-47.0); HEMOGLOBIN 11.6 g/dl (12.0-16.0); LYMPHOCYTES # 3.2 10^3/ul (0.8-2.9); LYMPHOCYTES % 28.3 % (15.0-51.0); MEAN CORPUSCULAR HEMOGLOBIN 27.4 pg (29.0-33.0); MEAN CORPUSCULAR VOLUME 80.6 fl (82.0-101.0); MEAN PLATELET VOLUME 10.9 fl (7.4-10.4); MONOCYTE # 0.8 10^3/ul (0.3-0.9); MONOCYTES % 7.3 % (0.0-11.0); NEUTROPHILS % 61.4 % (39.0-77.0); PLATELET COUNT 290 10^3/UL (140-415); RED BLOOD COUNT 4.23 10^6/ul (4.20-5.40); RED CELL DISTRIBUTION WIDTH 13.1 % (11.5-14.5); WHITE BLOOD COUNT 11.4 10^3/ul (4.8-10.8)
[2016-12-30 21:37] LABS: ALBUMIN 3.8 g/dl (3.3-4.9); ALBUMIN/GLOBULIN RATIO 1.4; CALCIUM 9.5 mg/dl (8.4-10.2); CREATININE 0.75 mg/dl (0.44-1.00); POTASSIUM 3.7 mmol/L (3.5-5.1); TOTAL PROTEIN 6.5 g/dl (6.1-8.1)
[2016-12-30 21:44] LABS: ADD SCAN DIFF NO
--- NOTE | 2016-12-30 22:34 | PN ---
Triage Information Date/Time Weeks of Gestation 33+ : 6 Para: 4 Diabetes: none Additional information For R/o Labor and PPROM Objective Vital Signs Date Time Temp Pulse Resp B/P Pulse Ox O2 Delivery O2 Flow Rate FiO2 12/30/16 19:14 98.4 81 18 130/62 Room Air Heart Rate: 140's Contractions: >10 Minutes Apart Results/Medications Result Diagram: 12/30/16200412/30/162004 Results 24 hrs Laboratory Tests Test 12/30/16 20:05 12/30/16 20:40 White Blood Count 11.4 H Red Blood Count 4.23 Hemoglobin 11.6 L Hematocrit 34.1 L Mean Corpuscular Volume 80.6 L Mean Corpuscular Hemoglobin 27.4 L Mean Corpuscular Hemoglobin Concent 34.0 Red Cell Distribution Width 13.1 Platelet Count 290 Mean Platelet Volume 10.9 H Neutrophils % 61.4 Lymphocytes % 28.3 Monocytes % 7.3 Eosinophils % 2.3 Basophils % 0.3 Nucleated Red Blood Cells % 0.0 Neutrophils # 7.0 Lymphocytes # 3.2 H Monocytes # 0.8 Eosinophils # 0.3 Basophils # 0.0 Nucleated Red Blood Cells # 0.0 Sodium Level 135 Potassium Level 3.7 Chloride Level 106 Carbon Dioxide Level 24 Anion Gap 9 Blood Urea Nitrogen 9 Creatinine 0.75 Glucose Level 81 Calcium Level 9.5 Total Bilirubin 0.0 L Direct Bilirubin 0.00 Indirect Bilirubin 0.0 Aspartate Amino Transf (AST/SGOT) 20 Alanine Aminotransferase (ALT/SGPT) 35 Alkaline Phosphatase 96 Total Protein 6.5 Albumin 3.8 Globulin 2.70 Albumin/Globulin Ratio 1.40 Membranes Rupture NEGATIVE Medications Current Medications Lactated Ringer's (Lr) 1,000 ml @ 125 mls/hr Q8H IV Last administered on t 20:05; Admin Dose 125 MLS/HR; Start 12/30/16 at 19:30 Assessment/Plan Neg Rom Plus DELFINO WNL NST reassuring BPP 02/06 CX closed JAJA JOHNSON M.D. Dec 30, 2016 22:33
--- NOTE | 2016-12-31 03:34 | TRIAGE ---
OB Triage Datetime Report Generated by CPN: 12/31/2016 03:34 Datetime: 12/30/2016 22:20 Labor Evaluation Frequency: IRREGULAR Monitor Mode: External Duration (sec)2399: 60-100 Quality: Mild Pattern: Normal: <= 5 Contractions in 10 Minutes Resting Tone [place]: Relaxed Heart Rate FHR Baseline Rate: 135 Monitor Mode: External US FHR Baseline Changes: No Baseline Change Variability: Moderate 6-25 bpm Accelerations: 15X15 Decelerations: None Category: Category I Datetime: 12/30/2016 21:00 Labor Evaluation Frequency: 4/HR Monitor Mode: External Duration (sec)2399: 60-100 Quality: Mild Pattern: Normal: <= 5 Contractions in 10 Minutes Resting Tone [place]: Relaxed Heart Rate FHR Baseline Rate: 135 Monitor Mode: External US FHR Baseline Changes: No Baseline Change Variability: Moderate 6-25 bpm Accelerations: 15X15 Decelerations: None Category: Category I Datetime: 12/30/2016 20:40 Vaginal Exam Dilatation (cms): 0.0 Effacement (%): 0 Station: -3 Exam By: Tony FREITAS RN Vaginal Bleeding: None Cervix, Consistency: Firm Cervix, Position: Posterior Datetime: 12/30/2016 20:00 Labor Evaluation Frequency: 10-11 Labor Evaluation Frequency: IRREGULAR Monitor Mode: External Duration (sec)2399: 50 Duration (sec)2399: 40 Quality: Mild Pattern: Normal: <= 5 Contractions in 10 Minutes Resting Tone [place]: Relaxed Heart Rate FHR Baseline Rate: 145 Monitor Mode: External US FHR Baseline Changes: No Baseline Change Variability: Moderate 6-25 bpm Accelerations: 15X15 Decelerations: None Category: Category I Datetime: 12/30/2016 19:04 Stage of : OB Triage Assessment Type: Triage Time of Arrival: 12/30/2016 18:41 EGA: 33.3 Arrived By: Wheelchair (Annotations: Data stored by CPN on behalf of user) Arrived From: Home Chief Complaint: CONTRACTIONS/ ITCHING FEET AND HANDS X 2 DAYS/ ROM?/ PELVIC PRESSURE Movement: Present Contractions: Irregular Rupture of Membranes: Unsure Vaginal Bleeding: None Vaginal Discharge: Present Recent Sexual Intercouse: Denies Abdominal Trauma: Not Applicable Patient Complaints: None Time Provider Notified: 12/30/2016 19:15 Provider Notified: DR JOHNSON Initial Plan: CALL GIDEON MANE Maternal Assessment Level of Consciousness: Fully Conscious DTR's/Clonus: DTRs 2+; No Clonus Headache: Denies Blurred Vision: No Respiratory Effort: Unlabored; Regular Rhythm; Equal Expansion Breath Sounds, Left: Clear and Equal Breath Sounds, Right: Clear and Equal Nausea/Vomiting: Denies RUQ Epigastric Pain: Denies Lower Extremities Edema: None Degree: None Upper Extremities Edema: None Degree: None Facial Edema: None Temperature Route: Oral Fall Risk Assessment History of Falling: (0) No Secondary Diagnosis: (0) No Ambulatory Aid: (0) Bedrest/Nurse Assist IV Therapy: (0) No Gait: (0) Normal/Bedrest/Immobile Mental Status: (0) Oriented to Own Ability Fall Score: 0 Fall Risk Score Definition: No Risk: No action required Monitor Mode: External Monitor Mode: External US Pain Assessment Pain Scale: 4 Pain Presence: Intermittent Pain Type: Contraction Pain Location: Abdomen Datetime: 12/09/2016 11:14 EGA: 30.3 Datetime: 12/09/2016 11:07 Fall Score: 0 Fall Risk Score Definition: No Risk: No action required Datetime: 12/07/2016 17:13 Fall Score: 0 Fall Risk Score Definition: No Risk: No action required Datetime: 12/07/2016 17:09 EGA: 30.1 Datetime: 11/20/2016 10:00 EGA: 27.5 Datetime: 11/20/2016 09:30 Fall Score: 0 Fall Risk Score Definition: No Risk: No action required
== END 2016-12-30 22:20 | disposition home or self-care (01) ==
LOC: OBT 18:41 → L-D 18:42 → OBT 22:20
PROVIDERS: ATTEND Obstetrics & Gynecology
DX: O62.9 Abnormality of forces of labor, unspecified (principal); Z3A.33 33 weeks gestation of pregnancy
CPT/HCPCS: 76815; 76818; 80053; 84112; 85025; J7120

== ENCOUNTER 2017-01-01 15:30 | Outpatient (CLI) | payer MEDICAID ==
[~2017-01-01] VITALS: Ht 162.6 cm; Wt 111.2 kg
[2017-01-01 15:39] VITALS: Ht 162.6 cm; Wt 111.2 kg
[2017-01-01 15:40] VITALS: BP 127/62; PULSE 92; RESP 16
--- NOTE | 2017-01-01 16:26 | RADRPT ---
PROCEDURE: US OB biophysical profile. CLINICAL INDICATION: decreased movements, labor TECHNIQUE: Multiple sonographic images of the pelvis were obtained. The images were reviewed on a PACS workstation. COMPARISON: 12/30/2016 FINDINGS: There is a single viable intrauterine gestation. Cardiac activity is present with 150 beats per min [place]. There is a vertex presentation. The placenta is anterior. There is no evidence of placental abruption. There is a normal amount of amniotic fluid with an DELFINO = 16.8 cm. Biophysical profile: movement 2/2 tone 2/2. breathing 2/2 DELFINO 2/2 Total 02/06 RPTAT: AA . IMPRESSION: Normal biophysical profile. . .Jeovanny Alcantar MD, MD Date Time Electronically viewed and signed by .Jeovanny Alcantar MD, MD on 01/01/2017 16:25 .S/
--- NOTE | 2017-01-01 16:58 | QN ---
Documentation Comment iup 34 weeks ucx vss exam wnl nst reacive os closed a/p iup 34 weeks false labor TOMY HANLEY MD Jan 01, 2017 16:58
--- NOTE | 2017-01-01 17:48 | TRIAGE ---
OB Triage Datetime Report Generated by CPN: 01/01/2017 16:59 Datetime: 01/01/2017 16:17 Labor Evaluation Frequency: 3 NOTED Monitor Mode: External Duration (sec)2399: 50-80 Pattern: Normal: <= 5 Contractions in 10 Minutes Resting Tone [place]: Relaxed Contraction Comments: ABDOMEN SOFT TO PALPATION. DENIES ANY CONTRACTIONS AT THIS TIME Heart Rate FHR Baseline Rate: 155 Monitor Mode: External US FHR Baseline Changes: No Baseline Change Variability: Moderate 6-25 bpm Accelerations: 15X15 Decelerations: None Category: Category I Datetime: 01/01/2017 16:00 Labor Evaluation Frequency: 0 Monitor Mode: External Duration (sec)2399: 0 Pattern: Normal: <= 5 Contractions in 10 Minutes Resting Tone [place]: Relaxed Contraction Comments: ABDOMEN SOFT TO PALPATION. DENIES FEELING ANY UC'S AT THIS TIME Heart Rate FHR Baseline Rate: 160 Monitor Mode: External US FHR Baseline Changes: No Baseline Change Variability: Moderate 6-25 bpm Accelerations: 15X15 Decelerations: None Category: Category I Vaginal Exam Dilatation (cms): 1.0 Effacement (%): 30 Station: -3 Exam By: DDUNN Vaginal Bleeding: None Cervix, Consistency: Soft Cervix, Position: Midposition Lie 'A': Unable to Assess Datetime: 01/01/2017 15:42 Assessment Type: Triage Maternal Assessment Level of Consciousness: Fully Conscious DTR's/Clonus: DTRs 2+; No Clonus Headache: Denies Blurred Vision: No Respiratory Effort: Unlabored; Regular Rhythm; Equal Expansion Breath Sounds, Left: Clear and Equal Breath Sounds, Right: Clear and Equal Nausea/Vomiting: Denies RUQ Epigastric Pain: Denies Lower Extremities Edema: Bilateral Lower Extremities Degree: 1+ Upper Extremities Edema: None Degree: None Facial Edema: None Fall Risk Assessment History of Falling: (0) No Secondary Diagnosis: (0) No Ambulatory Aid: (0) Bedrest/Nurse Assist IV Therapy: (0) No Gait: (0) Normal/Bedrest/Immobile Mental Status: (0) Oriented to Own Ability Fall Score: 0 Fall Risk Score Definition: No Risk: No action required Datetime: 12/31/2016 22:20 Time of Arrival: 01/01/2017 15:23 EGA: 34.6 Arrived By: Ambulatory Arrived From: Office Chief Complaint: contractions Movement: Present Contractions: Occasional Time Contractions Began: 01/01/2017 12:00 Rupture of Membranes: Denies Vaginal Bleeding: None Vaginal Discharge: Denies Recent Sexual Intercouse: Denies Abdominal Trauma: Not Applicable Patient Complaints: Cramping Time Provider Notified: 01/01/2017 15:53 Initial Plan: nst Datetime: 12/30/2016 19:04 EGA: 34.4 Fall Score: 0 Fall Risk Score Definition: No Risk: No action required Datetime: 12/09/2016 11:14 EGA: 31.4 Datetime: 12/09/2016 11:07 Fall Score: 0 Fall Risk Score Definition: No Risk: No action required Datetime: 12/07/2016 17:13 Fall Score: 0 Fall Risk Score Definition: No Risk: No action required Datetime: 12/07/2016 17:09 EGA: 31.2 Datetime: 11/20/2016 10:00 EGA: 28.6 Datetime: 11/20/2016 09:30 Fall Score: 0 Fall Risk Score Definition: No Risk: No action required
== END 2017-01-01 17:05 | disposition home or self-care (01) ==
LOC: OBT 15:30 → L-D 15:30 → OBT 17:05
PROVIDERS: ATTEND Obstetrics & Gynecology
DX: O47.03 False labor before 37 completed weeks of gestation, third trimester (principal); Z3A.34 34 weeks gestation of pregnancy
CPT/HCPCS: 76818; Z7500; G0463

== ENCOUNTER 2017-01-09 08:16 | Inpatient (IN) | payer MEDICAID ==
[~2017-01-09] VITALS: Ht 162.6 cm; Wt 112.5 kg
[2017-01-09 08:39] VITALS: BP 138/73; PULSE 88; Ht 162.6 cm; Wt 112.5 kg
--- NOTE | 2017-01-09 10:58 | RADRPT ---
PROCEDURE: US OB biophysical profile. CLINICAL INDICATION: evaluation TECHNIQUE: Multiple sonographic images of the pelvis were obtained. The images were reviewed on a PACS workstation. COMPARISON: Obstetrical ultrasound from 01/01/2017 FINDINGS: There is a single viable intrauterine gestation. Cardiac activity is present with 129 beats per min heydi. There is a vertex presentation. The placenta is anterior and fundal in location. There is no evidence of placental abruption. There is a normal amount of amniotic fluid with an DELFINO = 11.3 cm. Biophysical profile: movement 2/2 tone 2/2. breathing 2/2 DELFINO 2/2 Total 02/06 RPTAT: AA . IMPRESSION: Normal biophysical profile. Physician Radha Date Time Electronically viewed and signed by Physician Radha on 01/09/2017 10:58 RA/
[2017-01-09] MEDS ORDERED: LACTATED RINGER'S 1,000 ML IV SCH (13:16)
[2017-01-09] MEDS ORDERED: AMPICILLIN 2 GM/NS (PMX) 100 ML IV ONE (16:00)
[2017-01-09] MEDS ORDERED: MISOPROSTOL 200 MCG TAB PR PRN (16:00)
[2017-01-09] MEDS ORDERED: IBUPROFEN 600 MG TAB PO PRN (16:00)
[2017-01-09] MEDS ORDERED: OXYTOCIN 30 UNITS/LR 500 ML IV SCH ×2 (16:00)
[2017-01-09] MEDS ORDERED: OXYTOCIN 30 UNITS/LR 500 ML IV PRN (16:00)
[2017-01-09] MEDS ORDERED: CARBOPROST 250 MCG INJ IM PRN (16:00)
[2017-01-09] MEDS ORDERED: LACTATED RINGER'S 1,000 ML IV PRN (16:00)
[2017-01-09] MEDS ORDERED: METHYLERGONOVINE 0.2 MG INJ IM PRN (16:00)
[2017-01-09] MEDS ORDERED: LIDOCAINE 1% (MPF) 30 ML INJ INJ PRN (16:00)
[2017-01-09 16:08] LABS: ADD SCAN DIFF NO
[2017-01-09 16:11] LABS: BASOPHILS % 0.4 % (0.0-2.0); EOSINOPHILS # 0.1 10^3/ul (0.0-0.5); EOSINOPHILS % 1.5 % (0.0-7.0); HEMATOCRIT 34.5 % (37.0-47.0); HEMOGLOBIN 11.4 g/dl (12.0-16.0); LYMPHOCYTES # 2.7 10^3/ul (0.8-2.9); LYMPHOCYTES % 27.9 % (15.0-51.0); MEAN CORPUSCULAR HEMOGLOBIN 26.7 pg (29.0-33.0); MEAN CORPUSCULAR VOLUME 80.8 fl (82.0-101.0); MEAN PLATELET VOLUME 11.4 fl (7.4-10.4); MONOCYTE # 0.4 10^3/ul (0.3-0.9); MONOCYTES % 4.4 % (0.0-11.0); NEUTROPHIL # 6.3 10^3/ul (1.6-7.5); NEUTROPHILS % 65.4 % (39.0-77.0); PLATELET COUNT 280 10^3/UL (140-415); RED BLOOD COUNT 4.27 10^6/ul (4.20-5.40); RED CELL DISTRIBUTION WIDTH 13.6 % (11.5-14.5); WHITE BLOOD COUNT 9.6 10^3/ul (4.8-10.8)
[2017-01-09 16:15] LABS: INR 0.94; PROTIME 12.6 Sec (12.2-14.2)
[2017-01-09 16:16] LABS: PARTIAL THROMBOPLASTIN TIME 28.1 Sec (25.0-35.0)
[2017-01-09] MEDS: LACTATED RINGER'S 1,000 ML IV SCH (16:56)
[2017-01-09] MEDS: AMPICILLIN 1 GM/NS (PMX) 50 ML IV SCH (21:03)
[2017-01-10] MEDS: BUTORPHANOL 2 MG INJ IV PRN ×2 (00:49→06:34)
[2017-01-10] MEDS: AMPICILLIN 1 GM/NS (PMX) 50 ML IV SCH ×6 (00:59→21:24)
[2017-01-10] MEDS: LACTATED RINGER'S 1,000 ML IV SCH ×3 (01:58→19:25)
[2017-01-10] MEDS ORDERED: FENTAnyl 2MCG/ML-ROPIV 0.2% 100 ML ONE (16:10)
[2017-01-11] MEDS ORDERED: FENTAnyl 2MCG/ML-ROPIV 0.2% 100 ML BAG EPI SCH
[2017-01-11] MEDS: AMPICILLIN 1 GM/NS (PMX) 50 ML IV SCH ×2 (00:06→04:05)
[2017-01-11] MEDS: LACTATED RINGER'S 1,000 ML IV SCH ×3 (04:05→20:20)
[2017-01-11] MEDS ORDERED: DEXTROSE 5%-LR 1,000 ML IV PRN (04:30)
--- NOTE | 2017-01-11 06:22 | QN ---
Documentation Comment I was called by RN due to significant heavy vaginal bleeding occurred suddenly. Patient has under DR. Amanda care and per RN that had direct coomunication with Dr Johnson admitted for expectant managment due to PPROM and advanced cervical dilatation. Report given by RN denies any complications including placenta previa in current . Attended to the patient's bed side. noted patient has epidural and she is comfortable on the bed however there was about 500 cc blood on the chalks. Patient is fluent in [place]. She denies any complications during current including placenta previa. Vitals are currently stable. Kamaljit had 2 days ago ultrasound at this facility and noted to have anterior fundal placenta without previa No admission note available . Patient has been seen and examined by OB attending and was 5 cm dilated per RN report. Per RN report patient had received ampicillin currently for PPROM. I do not see any perinatology and neonatalogy consult report. SVE: 5 cm 80% -3 NST: Cat 1 Primary OB attending was notified Recommended to have Type and cross 2 units of blood available. have 2 IV line Recommended a dose of Steriod Primary OB at[place] is on his way. Report given by RN. is on his way clinical picture consistent with placental abruption currently FHT cat 1. No other active bleeding. will stand by since Primary attending will evaluate the patient/ Discussed with the patient about Possibility of section. NAILA MCCULLOUGH MD Jan 11, 2017 06:22
[2017-01-11] MEDS ORDERED: CEFAZOLIN 2 GM/50 ML (PMX) 50 ML IVPB STA (06:51)
[2017-01-11] MEDS ORDERED: CEFAZOLIN 2 GM/50 ML (PMX) 50 ML IVPB ONE (06:53)
--- NOTE | 2017-01-11 06:57 | RADRPT ---
PROCEDURE: Limited OB ultrasound CLINICAL INDICATION: Vaginal bleeding TECHNIQUE: Sonographic evaluation to assess the DELFINO was performed. Transabdominal imaging of the gravid uterus was performed. COMPARISON: No prior exam is available for comparison. FINDINGS: There is a single live intrauterine with a heart rate of 136 bpm. position is cephalic. The placenta is anterior. The DELFINO measures 10.1 cm. IMPRESSION: 1. The DELFINO measures 10.1 cm. 2. No sonographic evidence of placental abruption. RPTAT: HH .Isabella Dale MD, MD Date Time Electronically viewed and signed by .Isabella Dale MD, MD on 01/11/2017 06:57 .G/
--- NOTE | 2017-01-11 06:59 | HP ---
Date/Time of Note Date/Time of Note DATE: 01/11/17 TIME: 06:57 OB - History Hx of Present Free Text/Dictation 36+wks GA : 6 Para: 4 Care: Good Care Ultrasounds: Normal mid trimester US Obstetrical Complications: None Medical Complications: None Past Family/Social History * Past Medical, Surgical, Family and Obstetric Histories reviewed from chart. OB Admission Exam Vital Signs Vital Signs Vital Signs Date Time Temp Pulse Resp B/P Pulse Ox O2 Delivery O2 Flow Rate FiO2 01/09/17 08:39 98.2 88 138/73 Physical Exam Abdomen: WNL Cervical Dilatation: 3cm Effacement: 75% Station: -1 Membranes: Intact Heart Rate: 140's Accelerations: Accelerations Present Decelerations: No Decelerations Varibility: Moderate Contractions on Admission: 6-10 Minutes Apart Last 72 hours Lab Results CBC & BMP 01/09/17 13:40 OB Assessment/Plan Reason for admission: observation Plan: Expectant Management JAJA JOHNSON M.D. Jan 11, 2017 06:59
[2017-01-11] MEDS ORDERED: OXYTOCIN 30 UNITS/LR 500 ML BAG IV ONE (07:00)
[2017-01-11] MEDS ORDERED: OXYTOCIN 10 UNIT INJ ONE (07:08)
[2017-01-11] MEDS ORDERED: KETOROLAC 30 MG INJ ONE (07:09)
[2017-01-11] MEDS ORDERED: DEXAMETHASONE 4 MG/ML 1 ML INJ ONE (07:09)
[2017-01-11] MEDS ORDERED: METOCLOPRAMIDE 10 MG INJ ONE (07:09)
[2017-01-11] MEDS ORDERED: ONDANSETRON 4 MG INJ ONE (07:09)
[2017-01-11] MEDS ORDERED: PHENYLephrine (100 MCG/ML) 5ML SYG ONE (07:12)
[2017-01-11] MEDS ORDERED: MIDAZOLAM 1 MG/ML 2 ML INJ ONE (07:21)
[2017-01-11] MEDS ORDERED: morphine SULFATE/PF (10 MG/10 ML) INJ ONE (07:35)
--- NOTE | 2017-01-11 07:43 | OPR ---
Operative Report Planned Procedure Free Text/Dictation 36+wks Heavy vaginal bleeding Suspected Abruption Remote from Delivery Procedure date Jan 11, 2017 Procedure(s) primary c/section Performed by: JAJA JOHNSON M.D. Assisting provider: KAYLEN ZAPATA MD Anesthesiologist: FATMATA SUNG MD Pre-procedure diagnosis 36+wks Heavy vaginal bleeding Suspected Abruption Remote from Delivery Anesthesia Type: spinal epidural Procedure Description Under satisfactory [] anesthesia, the patient was prepped and draped and placed in a supine position, tilted to the left. Pfannenstiel incision was made, carried through the subcutaneous tissue. Bleeders brought under control with electrocautery. Fascia incised to the length of the incision. Rectus muscles from the fascia, divided midline. Peritoneum exposed, entered through a transverse incision. Exploration of abdomen revealed gravid uterus. Bladder flap was developed. Transverse incision was made in the lower segment of the uterus. Amniotic sac ruptured. [] amniotic fluid noted. [] Nasal oropharyngeal suction was performed. The baby was handed to the team for immediate attention. The placenta was delivered manually intact. Uterine cavity was cleaned with wet sponge and drainage established. Uterus closed in 2 layers using [] in continuous fashion. Peritoneal cavity irrigated with warm saline. Sponge, needle and instrument count reported to be correct. Abdominal peritoneum closed with [] continuously. Rectus muscle approximated with []. Fascia closed with [], and skin closed with dermoband. Estimated blood loss [600 ]mL. Urine bag contained []mL of urine Post-Procedure Findings: Live Baby [], Apgars [] and [], weight [], position [], [] presentation []cord. Specimen removed: Yes Complications: None Pt Condition post procedure: stable Disposition: PACU Physician Certification I, the undersigned physician, hereby certify that I have discussed the procedure described in this consent form with this patient (or the patient's legal account manager sales representative), including: * The risk and benefits of the procedure; * Any adverse reactions that may reasonably be expected to occur; * Any alternative efficacious methods of treatment which may be medically viable ; * The potential problems that may occur during recuperation; * Potential for blood transfusion and associated risks/benefits; and * Any research or economic interest I may have regarding this treatment. I further certify that the patient/legally responsible person was encouraged to ask question and that all questions were answered. JAJA JOHNSON M.D. Jan 11, 2017 07:42
[2017-01-11] MEDS ORDERED: NALBUPHINE HCL (10 MG/1 ML) INJ IV PRN (08:00)
[2017-01-11] MEDS ORDERED: DIPHENHYDRAMINE 50 MG INJ IV PRN (08:00)
[2017-01-11] MEDS ORDERED: HYDROCODONE/APAP (5/325) TAB PO PRN (08:00)
[2017-01-11] MEDS ORDERED: ONDANSETRON 4 MG INJ IV PRN (08:00)
[2017-01-11] MEDS ORDERED: HYDROmorphONE 1 MG/ML SYG IV PRN (08:00)
[2017-01-11] MEDS ORDERED: morphine 2 MG INJ IV PRN (08:00)
[2017-01-11] MEDS ORDERED: NALOXONE (0.4 MG/ML) INJ IV PRN ×2 (08:00)
[2017-01-11] MEDS ORDERED: ACETAMINOPHEN 500 MG TAB PO PRN (08:00)
[2017-01-11] MEDS ORDERED: morphine 4 MG/ML VIAL IV PRN (08:00)
[2017-01-11] MEDS ORDERED: MEPERIDINE 25 MG INJ IV PRN (08:30)
[2017-01-11] MEDS: HYDROmorphONE 1 MG/ML SYG IV PRN (09:16)
[2017-01-11] MEDS ORDERED: OXYTOCIN 30 UNITS/LR 500 ML IV PRN (11:00)
[2017-01-11] MEDS ORDERED: ALBUTEROL 18 GM INHALER INH PRN (11:00)
[2017-01-11] MEDS ORDERED: CARBOPROST 250 MCG INJ IM PRN (11:00)
[2017-01-11] MEDS ORDERED: MISOPROSTOL 200 MCG TAB PR PRN (11:00)
[2017-01-11] MEDS ORDERED: METHYLERGONOVINE 0.2 MG INJ IM PRN (11:00)
[2017-01-11] MEDS ORDERED: CEFAZOLIN 2 GM/50 ML (PMX) 50 ML IV ONE (11:00)
[2017-01-11] MEDS: ALBUTEROL 18 GM INHALER INH PRN (11:34)
[2017-01-11] MEDS: IBUPROFEN 600 MG TAB PO SCH ×2 (12:00→18:00)
[2017-01-11] MEDS: KETOROLAC 30 MG INJ IV PRN ×2 (13:33→20:19)
[2017-01-11 15:35] VITALS: BP 119/75; PULSE 80; RESP 19
[2017-01-11 16:05] VITALS: BP 120/70; PULSE 76; RESP 17
[2017-01-11 20:19] VITALS: BP 105/73; PULSE 81; RESP 17
[2017-01-11] MEDS: SENNA/DOCUSATE NA (8.6MG/50MG) TAB PO SCH (21:00)
[2017-01-12] VITALS: BP 104/76; PULSE 84; RESP 17
[2017-01-12] MEDS: KETOROLAC 30 MG INJ IV PRN (01:53)
[2017-01-12] MEDS: HYDROmorphONE 1 MG/ML SYG IV PRN (03:55)
[2017-01-12 04:00] VITALS: BP 118/70; PULSE 81; RESP 17
[2017-01-12 07:59] LABS: ADD SCAN DIFF NO
[2017-01-12] MEDS: IBUPROFEN 600 MG TAB PO SCH ×5 (08:00→23:44)
[2017-01-12 08:07] LABS: BASOPHILS % 0.4 % (0.0-2.0); EOSINOPHILS # 0.1 10^3/ul (0.0-0.5); EOSINOPHILS % 0.9 % (0.0-7.0); HEMATOCRIT 25.2 % (37.0-47.0); HEMOGLOBIN 8.2 g/dl (12.0-16.0); LYMPHOCYTES # 3.6 10^3/ul (0.8-2.9); LYMPHOCYTES % 32.2 % (15.0-51.0); MEAN CORPUSCULAR HEMOGLOBIN 26.3 pg (29.0-33.0); MEAN CORPUSCULAR HGB CONC 32.5 g/dl (32.0-37.0); MEAN CORPUSCULAR VOLUME 80.8 fl (82.0-101.0); MEAN PLATELET VOLUME 10.6 fl (7.4-10.4); MONOCYTE # 0.7 10^3/ul (0.3-0.9); MONOCYTES % 5.8 % (0.0-11.0); NEUTROPHIL # 6.8 10^3/ul (1.6-7.5); NEUTROPHILS % 60.2 % (39.0-77.0); PLATELET COUNT 230 10^3/UL (140-415); RED BLOOD COUNT 3.12 10^6/ul (4.20-5.40); RED CELL DISTRIBUTION WIDTH 13.3 % (11.5-14.5); WHITE BLOOD COUNT 11.3 10^3/ul (4.8-10.8)
[2017-01-12 08:59] VITALS: BP 124/76; PULSE 74; RESP 18
[2017-01-12] MEDS: OXYCODONE/ACETAMINOPHEN (5/325) TAB PO PRN ×4 (08:59→22:27)
[2017-01-12] MEDS: SENNA/DOCUSATE NA (8.6MG/50MG) TAB PO SCH ×2 (09:01→20:52)
[2017-01-12] MEDS: ALBUTEROL 18 GM INHALER INH PRN (09:03)
[2017-01-12 16:10] VITALS: BP 117/68; PULSE 84; RESP 18
[2017-01-12 20:00] VITALS: BP 117/73; PULSE 84; RESP 18
[2017-01-13] MEDS: OXYCODONE/ACETAMINOPHEN (5/325) TAB PO PRN ×4 (01:59→21:42)
[2017-01-13 04:00] VITALS: BP 111/61; PULSE 79; RESP 18
[2017-01-13] MEDS: IBUPROFEN 600 MG TAB PO SCH ×3 (05:51→18:44)
[2017-01-13 08:00] VITALS: BP 117/74; PULSE 91; RESP 18
--- NOTE | 2017-01-13 08:53 | QN ---
Documentation Comment LATE NOTE 01/12/17 POD#1 is stable afebrile +flatus +voids no sign of depression vs stable Gen NAD Abd soft NT ND Incision intact Genitalia No blood at perinium --->discharge plan tomorrow --->ambulation JAJA JOHNSON M.D. Jan 13, 2017 08:53
[2017-01-13] MEDS: SENNA/DOCUSATE NA (8.6MG/50MG) TAB PO SCH ×2 (09:43→21:42)
[2017-01-13] MEDS: ALBUTEROL 18 GM INHALER INH PRN (09:49)
[2017-01-13 15:40] VITALS: BP 131/72; PULSE 80; RESP 20
[2017-01-13 16:52] VITALS: BP 125/70; PULSE 80
[2017-01-13 19:35] VITALS: BP 117/73; PULSE 77; RESP 18
[2017-01-14 04:10] VITALS: BP 124/71; PULSE 71; RESP 17
[2017-01-14] MEDS: IBUPROFEN 600 MG TAB PO SCH ×3 (05:38→12:02)
[2017-01-14] MEDS: SENNA/DOCUSATE NA (8.6MG/50MG) TAB PO SCH (08:40)
[2017-01-14] MEDS: OXYCODONE/ACETAMINOPHEN (5/325) TAB PO PRN ×2 (08:41→14:12)
[2017-01-14] MEDS ORDERED: DIPHTH/TET/ACEL PERTUSS (ADULT) 0.5 ML VIAL IM* ONE (09:00)
[2017-01-14 09:15] VITALS: BP 112/79; PULSE 81; RESP 18
== END 2017-01-14 17:01 | disposition home or self-care (01) | DRG 775 ==
LOC: L-D 08:16 → OBT 08:16 → L-D 13:06 → PP1 01-11 15:20
PROVIDERS: ADMIT Obstetrics & Gynecology; ATTEND Obstetrics & Gynecology
PROC: 10E0XZZ Delivery of Products of Conception, External Approach (ICD-10-PCS; principal; 2017-01-11 06:30)
PROC: 3E00X4Z Introduction of Serum, Toxoid and Vaccine into Skin and Mucous Membranes, External Approach (ICD-10-PCS; 2017-01-14)
DX: O60.14X0 Preterm labor third trimester with preterm delivery third trimester, not applicable or unspecified (principal); Z23 Encounter for immunization; Z3A.36 36 weeks gestation of pregnancy; Z37.0 Single live birth
CPT/HCPCS: 62319; 76815; 76818; 85025; 85610; 85730; 86592; 86850; 86900; 86901; 86920; 87340; 88307; 90715; 94760; 99464; G0463; J0290; J0595; J0690; J1100; J1170; J1885; J2175; J2250; J2274; J2370; J2405; J2590; J2765; J3010; J7120

== ENCOUNTER 2017-11-13 08:25 | Emergency (ER) | END 2017-11-13 09:56 | disposition home or self-care (01) ==

== ENCOUNTER 2018-05-27 08:51 | Emergency (ER) | END 2018-05-27 14:20 | disposition home or self-care (01) ==